=== PATIENT | male | born 1985 | race Caucasian/White ===

== ENCOUNTER 2022-12-25 10:51 | Emergency (ER) | payer MEDICAID ==
[~2022-12-25] VITALS: Ht 170.2 cm; Wt 77.0 kg
[2022-12-25 11:08] VITALS: TEMP 98.4
[2022-12-25] MEDS ORDERED: PERTUSS(ACELL),DIPH,TET VAC/PF 0.5 ML SYRINGE IM. ONE (11:30)
[2022-12-25] MEDS ORDERED: IBUPROFEN 400 MG TABLET PO ONE (11:30)
[2022-12-25] MEDS ORDERED: CEPH-558 PO (11:50)
[2022-12-25] MEDS ORDERED: CEPHALEXIN MONOHYDRATE 500 MG CAPSULE PO ONE (12:00)
[2022-12-25] MEDS ORDERED: BACITRACIN 0.9 GM PACKET OINTMENT TP ONE (12:00)
[2022-12-25 12:26] VITALS: BP 126/75; PULSE 62; RESP 16
== END 2022-12-25 12:40 | disposition home or self-care (01) ==
LOC: EMS 10:54
DX: S61.215A Laceration without foreign body of left ring finger without damage to nail, initial encounter (principal); W26.8XXA Contact with other sharp object(s), not elsewhere classified, initial encounter; Y93.89 Activity, other specified; Y92.89 Other specified places as the place of occurrence of the external cause; Y99.8 Other external cause status
CPT/HCPCS: 90471; 90715; 99284